=== PATIENT | female | born 1985 | race Caucasian/White ===

== ENCOUNTER 2018-11-24 01:22 | Outpatient (CLI) | payer OTHER, SELFPAY ==
--- NOTE | 2018-11-24 10:43 | DI.MRI_ITS ---
SYMPTOMS/DIAGNOSIS: LEFT PERISCAPULAR PAIN, LEFT THUMB WEAKNESS MRI OF THE CERVICAL SPINE: T1, T2, STIR, FLAIR and T2 3D sagittal and gradient echo axial sequences were performed. Exam is somewhat limited by patient motion. The cord signal and marrow signal appear normal. The intervertebral discs appear intact. There is no evidence of disc herniation, neural foraminal narrowing or central canal stenosis. No paraspinal mass is visible. IMPRESSION: Negative MRI of the cervical spine.
== END 2018-11-24 01:42 ==
PROVIDERS: PCP Physician Assistant Medical; Visit Provider Nurse Practitioner Family
DX: M25.512 Pain in left shoulder (principal); R29.898 Other symptoms and signs involving the musculoskeletal system
CPT/HCPCS: 72141

== ENCOUNTER 2020-04-06 08:57 | Outpatient (CLI) | payer MEDICAID, SELFPAY ==
--- NOTE | 2020-04-06 12:15 | DI.RAD_ITS ---
EXAM: XR SHOULDER LT COMPLETE 2+V CLINICAL HISTORY: L shoulder pain, restricted LUE abd int rotation M25.512 PAIN LT SHOUDLER TECHNIQUE: COMPARISON: CR,DX XR SHOULDER MIN 2V LT from 03/06/2019 FINDINGS: Five views were obtained. There is an apparent old deformity of the distal clavicle. There are mini mal hypertrophic degenerative changes at the acromioclavicular joint. Glenohumeral joint appears int act with well maintained cartilage and no significant associated bony abnormality. Soft tissues are unremarkable. No other significant abnormality seen. IMPRESSION:
== END 2020-04-06 09:17 ==
PROVIDERS: PCP Physician Assistant Medical; Visit Provider Nurse Practitioner Family
DX: M25.512 Pain in left shoulder (principal); M19.012 Primary osteoarthritis, left shoulder
CPT/HCPCS: 73030

== ENCOUNTER 2020-07-28 00:30 | Outpatient (CLI) | payer MEDICAID, SELFPAY ==
--- NOTE | 2020-07-28 | DI.US_ITS ---
EXAM: LT PERISCAPULAR PAIN,IMPINGEMENT AND CERVICAL MYOFASCIAL SYNDROME,H/O JOINT COMPARISON: No exams were available for comparison TECHNIQUE: Ultrasound performed using standard protocol. FINDINGS: Sonography was provided for Dr. Dutta during the performance of a left trapezius injection.. Please refer to the procedure report for complete details. DATA REPOSITORY:
[2020-07-28 09:01] VITALS: BP 109/77; PULSE 73; RESP 18; TEMP 37.2; O2SAT 99
--- NOTE | 2020-07-28 09:46 | PDOC.PAIN_ITS ---
Pain Clinic Procedure Note Procedure Note Procedure Note: ULTRASOUND GUIDED LEFT trapezius, levator scapulae, and rhomboid muscle trigger point INJECTIONS Pre-Procedural Evaluation: LIAT ELMORE has been referred to the [facility] for an Ultrasound Guided left trapezius, levator scapulae and rhomboid muscle trigger point injections for a chief complaint of left upper back and shoulder pain. Pre-procedure Pain Score: 4/10 DX: Muscle pain Patient was interviewed and the medical record reviewed. There were no medical, pharmacologic, radiographic, or other structural contraindications to preforming an ultrasound guided injection. Risks and expected side effects as well as potential benefits of the procedure were reviewed. The patient consent form was signed and witnessed. Standard time-out procedure was performed. The use of direct ultrasound visualization of the needle (rather than a non- guided injection) was required to increase patient safety by excluding inadvertent intramuscular, intratendinous, or intraneural needle placement and minimizing bleeding by avoiding osteochondral or vascular injury from the needle. Additionally, the increased accuracy of placement may increase clinical effectiveness and will allow higher diagnostic specificity when evaluating effectiveness of this injection. Procedure Description: The patient was placed in the prone position and automated blood pressure cuff and pulse oximeter applied for monitoring during the procedure and recorded in the medical record. Pre-injection ultrasound scanning of the area of interest was performed using linear transducer, identifying relevant anatomy, landmarks, and neurovascular structures allowing for optimal needle path. The site was then prepared in the usual sterile fashion, using thorough Chlorhexadine preparation of the skin and sterile draping. The same ultrasound transducer was then passed into the sterile field using sterile probe cover and sterile ultrasound gel. The injection target was again visualized. Skin and subcutaneous tissues were anesthetized with 1 mL of 1% Lidocaine. A 3.5 inch ultrasound Pajunk needle was placed under live ultrasound guidance, using an in-plane approach, to the target area. After visualization of the needle tip at the target area, a mixture of 4 mL 1% Lidocaine and 1 mL Depomedrol (40 mg/cc), totaling 5 mL of injectate was delivered after negative aspiration for blood. The needle was flushed with 1 cc of 1% Lidocaine before it was removed each time. Ultrasound images were captured and stored for documentation purposes. Post-procedure Pain Score:1/10 Vital signs were stable throughout the procedure and were as recorded in the docflowsheet by the nursing staff. Follow up plans and appointments were discussed with the patient.Post procedure instruction was given as documented in nursing documentation and having met discharge criteria, they were discharged from the [facility]. COMMENTS: She tolerated the procedure very well. She will start her stretching exercises tomorrow.
[2020-07-28 09:54] VITALS: PULSE 73; O2SAT 100
[2020-07-28] MEDS: methylPREDNISolone ACETATE 40 MG/ML VIAL IJ (09:59)
[2020-07-28] MEDS: Lidocaine 1% Pres-Free 5 ML VIAL IJ (09:59)
== END 2020-07-28 00:50 ==
PROVIDERS: PCP Physician Assistant Medical; Visit Provider Preventive Medicine Occupational Medicine
DX: M25.512 Pain in left shoulder (principal); M54.9 Dorsalgia, unspecified
CPT/HCPCS: 20553; 76942; J1030

== ENCOUNTER 2021-04-20 03:30 | Outpatient (CLI) | payer MEDICAID, SELFPAY ==
--- NOTE | 2021-04-20 | DI.US_ITS ---
Exam(s) US PAIN CLINIC NEEDLE GUIDANCE EXAM: LT PERISCAPULAR PAIN,CERVICAL MYOFASCIAL PAIN SYNDROME, ULTRASOUND GUIDED COMPARISON: US US PAIN CLINIC NEEDLE GUIDANCE from 07/28/2020 TECHNIQUE: Ultrasound performed using standard protocol. FINDINGS: Ultrasound guidance was provided during left periscapular trigger point injection performed by the pa in management accountant. Radiologist was not present. IMPRESSION: DATA REPOSITORY:
[2021-04-20 08:00] VITALS: BP 108/80; PULSE 87; RESP 16; TEMP 37.1; O2SAT 100
[2021-04-20 08:35] VITALS: PULSE 78; RESP 18; O2SAT 100
[2021-04-20] MEDS: methylPREDNISolone ACETATE 40 MG/ML VIAL IJ (08:36)
[2021-04-20] MEDS: Lidocaine 1% Pres-Free 5 ML VIAL IJ (08:36)
--- NOTE | 2021-04-20 08:39 | PDOC.PAIN_ITS ---
Pain Clinic Procedure Note Procedure Note Procedure Note: ULTRASOUND GUIDED [RIGHT/LEFT]:43503 [] INJECTIONS Pre-Procedural Evaluation: Mara Deshpande has been referred to the [facility] for an Ultrasound Guided left trapezius, rhomboid, and thoracic paraspinous trigger point injection for a chief complaint of left upper back pain. Pre-procedure Pain Score: 6/10 Pre-procedure diagnosis: Muscle pain Patient was interviewed and the medical record reviewed. There were no medical, pharmacologic, radiographic, or other structural contraindications to preforming an ultrasound guided injection. Risks and expected side effects as well as potential benefits of the procedure were reviewed. The patient consent form was signed and witnessed. Standard time-out procedure was performed. The use of direct ultrasound visualization of the needle (rather than a non- guided injection) was required to increase patient safety by excluding inadvertent intramuscular, intratendinous, or intraneural needle placement and minimizing bleeding by avoiding osteochondral or vascular injury from the needle. Additionally, the increased accuracy of placement may increase clinical effectiveness and will allow higher diagnostic specificity when evaluating effe ctiveness of this injection. Procedure Description: The patient was placed in the prone position and automated blood pressure cuff and pulse oximeter applied for monitoring during the procedure and recorded in the medical record. Pre-injection ultrasound scanning of the area of interest was performed using linear transducer, identifying relevant anatomy, landmarks, and neurovascular structures allowing for optimal needle path. The site was then prepared in the usual sterile fashion, using thorough Chlorhexadine preparation of the skin and sterile draping. The same ultrasound transducer was then passed into the sterile field using sterile probe cover and sterile ultrasound gel. The injection target was again visualized. Skin and subcutaneous tissues were anesthetized with 1 mL of 1% Lidocaine. A 21G 3.5 Pajunk ultrasound needle was placed under live ultrasound guidance, using an in-plane approach, to the target area. After visualization of the needle tip at the target area, a mixture of 3 mL 2% Lidocaine and 40 mg Depomedrol (40mg/cc) divided into 3 sites was delivered after negative aspiration for blood. Ultrasound images were captured and stored for documentation purposes. Post-procedure Pain Score:2/10 Vital signs were stable throughout the procedure and were as recorded in the docflowsheet by the nursing staff. Follow up plans and appointments were discussed with the patient.Post procedure instruction was given as documented in nursing documentation and having met discharge criteria, they were discharged from the [facility]. COMMENTS: This procedure can be completed up to 3 times per 12 months if it is found to be helpful. Juan Daniel Dutta DO, MPH Pain Management
== END 2021-04-20 03:50 ==
PROVIDERS: PCP Physician Assistant Medical; Visit Provider Preventive Medicine Occupational Medicine
DX: M79.18 Myalgia, other site (principal)
CPT/HCPCS: 20553; 76942; J1030